=== PATIENT | male | born 1980 | race Caucasian/White ===

== ENCOUNTER 2023-08-28 11:36 | Outpatient (OUT) | payer MEDICARE, SELFPAY ==
[2023-08-28 12:09] LABS: Basophils Percent Auto 0.4 % (0.2-2.0); Eosinophils Absolute Auto 0.1 10^3/uL (0.0-0.7); Eosinophils Percent Auto 1.5 % (0.9-7.0); Hematocrit 45.3 % (42.0-54.0); Hemoglobin 15.2 g/dL (14.0-18.0); Immature Granulocytes Abs Auto 0.01 10^3/uL (0.00-0.03); Immature Granulocytes Pct Auto 0.2 % (0.0-0.5); Lymphocytes Absolute Auto 1.7 10^3/uL (1.2-3.8); Lymphocytes Percent Auto 31.1 % (20.5-60.0); Mean Corpuscular HGB Conc 33.6 g/dL (29.9-35.2); Mean Corpuscular Hemoglobin 31.2 pg (25.9-34.0); Mean Platelet Volume 10.4 fL (9.5-13.5); Monocytes Absolute Auto 0.5 10^3/uL (0.3-0.8); Monocytes Percent Auto 9.1 % (1.7-12.0); Neutrophils Absolute Auto 3.2 10^3/uL (1.4-6.5); Neutrophils Percent Auto 57.7 % (43.0-75.0); Platelet Count 252 10^3/uL (150-450); Red Blood Count 4.87 10^6/uL (4.70-6.10); Red Cell Distribution Width 12.3 % (11.0-15.0); White Blood Count 5.5 10^3/uL (4.0-11.0)
[2023-08-28 12:10] LABS: Ammonia 14 umol/L (11-32)
[2023-08-28 13:28] LABS: Alanine Aminotransferase 65 U/L (16-63); Albumin Globulin Ratio 0.9; Albumin Level 4.1 g/dL (3.4-5.0); Alkaline Phosphatase 82 U/L (46-116); Anion Gap 15.7; Aspartate Amino Transferase 33 U/L (15-37); Bilirubin Total 0.5 mg/dL (0.2-1.0); Calcium 9.4 mg/dL (8.5-10.1); Carbon Dioxide 28.7 mmol/L (21.0-32.0); Chloride 102 mmol/L (98-107); Estimated GFR (African America >60 (>=60); Estimated GFR (Non-African Ame >60 (>=60); Free T3 2.46 pg/mL (2.18-3.98); Globulin 4.5 g/dL; Glucose 96 mg/dL (74-106); Myoglobin 209 ng/mL (16-96); Potassium 4.4 mmol/L (3.5-5.1); Sodium 142 mmol/L (136-145); Thyroid Stimulating Hormone 2.691 uIU/mL (0.358-3.740); Total Protein 8.6 g/dL (6.4-8.2)
[2023-08-28 13:48] LABS: Creatine Kinase 534 U/L (39-308)
== END 2023-08-28 11:37 | disposition home or self-care (01) ==
LOC: LAB 11:40
PROVIDERS: PCP Family Medicine; Visit Provider Family Medicine
DX: R41.3 Other amnesia (principal); R10.9 Unspecified abdominal pain; D64.9 Anemia, unspecified; E55.9 Vitamin D deficiency, unspecified
CPT/HCPCS: 36415; 80053; 82140; 82306; 82550; 83540; 83874; 84436; 84443; 84481; 85025

== ENCOUNTER 2024-08-31 20:08 | Emergency (ER) | payer MEDICARE, MEDICAID, SELFPAY ==
[2024-08-31 20:09] VITALS: BP 170/120; PULSE 87; TEMP 36.6; O2SAT 100; BMI 35.9
--- NOTE | 2024-08-31 20:17 | ED.EXTPRO1 ---
HPI - Extremity Problem General Chief complaint: Extremity Problem, Nontraumatic Stated complaint: Lower Pain Time Seen by Provider: 08/31/24 20:08 Source: patient Mode of arrival: ambulance Limitations: no limitations History of Present Illness HPI Narrative: cc = left lower extremity pain and swelling Patient with muscular dystrophy was brought in by squad after he had sudden, severe pain in the left lower leg along with tightness and squeezing sensation . 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 the left lower leg, calf is much more swollen than the right and he says this is atypical for him By the time he was brought to our emergency department, the patient stated that his pain had gone away . Blood pressure is markedly elevated on arrival No recent fall or injury to the left lower extremity. He is not bedbound but he does spend a significant amount of his time seated or laying in bed. No prior history of DVT or PE. No chest pain, palpitations, shortness of breath Related Data Home Medications ?Medication ?Instructions ?Recorded ?Confirmed bupropion HCl 150 mg 24 hr tablet, mg PO 08/31/24 extended release gabapentin 600 mg tablet mg 08/31/24 lisinopril 20 mg tablet mg 08/31/24 tramadol 50 mg tablet mg 08/31/24 Previous Rx's ?Medication ?Instructions ?Recorded apixaban 5 mg (74 tabs) tablets in 5 mg PO BID #74 ea 08/31/24 a dose pack (Eliquis DVT-PE Treat 30D Start) Allergies Allergy/AdvReac Type Severity Reaction Status Date / Time Penicillins Allergy Unknown Verified 08/31/24 20:12 PFSH PFSH Social History Little interest or pleasure in doing things: not at all Feeling down, depressed, or hopeless: not at all Exam Narrative Exam Narrative: Nurses notes and vital signs reviewed and patient is not hypoxic. afebrile General: Well-appearing and in no apparent distress. Skin: Warm, dry, no pallor noted. No rash. Eye: Pupils are equal, round and EOMI. No scleral icterus. Cardiovascular: Regular Rate and Rhythm without murmur, gallop or rub. Respiratory: No accessory muscle use or respiratory distress. Lungs are clear to auscultation, no wheezing, rales or rhonchi Musculoskeletal: normal ROM, no calf or popliteal tenderness, but the left calf is very firm on palpation, whereas the right is very supple. left lower leg swelling when compared to the right. GI: Abdomen is soft, non-distended. Normal bowel sounds. No tenderness to palpation. No rebound, guarding, or rigidity noted. Neurological: A&O x4. No cranial nerve dysfunction observed. No truncal ataxia. Moves all extremities. Sensation intact. Psychiatric: Cooperative and interactive. Normal mood and affect. Constitutional Vital Signs, click to edit/add: Last Vital Signs Temp 97.9 F 08/31/24 20:09 Pulse 87 08/31/24 20:09 Resp 16 08/31/24 20:09 BP 146/94 H 08/31/24 20:57 Pulse Ox 100 08/31/24 20:09 O2 Del Method Room Air 08/31/24 20:09 Course Vital Signs Vital signs: Vital Signs Temperature 97.9 F 08/31/24 20:09 Pulse Rate 87 08/31/24 20:09 Respiratory Rate 16 08/31/24 20:09 Blood Pressure 170/120 H 08/31/24 20:09 Pulse Oximetry 100 08/31/24 20:09 Oxygen Delivery Method Room Air 08/31/24 20:09 Temperature 97.9 F 08/31/24 20:09 Pulse Rate 87 08/31/24 20:09 Respiratory Rate 16 08/31/24 20:09 Blood Pressure 146/94 H 08/31/24 20:57 Pulse Oximetry 100 08/31/24 20:09 Oxygen Delivery Method Room Air 08/31/24 20:09 MDM - Extremity (Nontraumatic) MDM Narrative Medical decision making narrative: The patient does not have classic findings associated with DVT, I am concerned about the amount of swelling in the left lower leg when compared to the right, the firmness of the leg and the fact that he had pain earlier. 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 interactive video technician reported the patient had a deep venous thrombosis of the left lower extremity. I spoke with the patient about his diagnosis and we discussed several items including the need for anticoagulation -I printed off information for him on how to apply for a savings card that allows his Eliquis to be as low as $10 per month. We also discussed the importance of keeping the leg elevated, using support hose to limit edema, other considerations while on anticoagulation. He gave me permission to talk to his about his condition and recommendations for treatment as well. He has an appointment with Dr. Weaver tomorrow, already scheduled, for routine blood testing and I encouraged him to keep that appointment. We discussed reasons to return to the ED including shortness of breath, chest pain, passing out episodes or any other worrisome condition/symptoms. Discharge Plan Discharge Chief Complaint: Extremity Problem, Nontraumatic Clinical Impression: Deep vein thrombosis of lower extremity Patient Disposition: Home, Self-Care Time of Disposition Decision: 22:40 Prescriptions / Home Meds: New Rambo DVT-PE Treat 30D Start 5 mg (74 tabs) tablets,dose pack 5 mg PO BID Qty: 74 0RF No Action lisinopril 20 mg tablet tramadol 50 mg tablet bupropion HCl 150 mg tablet extended release 24 hr PO gabapentin 600 mg tablet Print Language: German Instructions: Deep Vein Thrombosis (ED), Blood Thinners (ED) Referrals: Shahram Weaver MD [Primary Care Provider] - 1 week
--- OUTSIDE RECORDS SUMMARY | 2024-08-31 20:19 | XMS_ITS | CCD ---
Author Organization [facility] Care Team Providers Care Extract Operator Name Role Phone EARNEST, DR CALIX Consulting Unavailable HOY, DR CALIX Primary Care Unavailable HOY, DR CALIX Admitting Unavailable HOY, DR CALIX Attending Unavailable HOY, DR CALIX Consulting Unavailable HOY, DR CALIX Admitting Unavailable HOY, DR CALIX Attending Unavailable HOY, DR CALIX Primary Care Unavailable HOY, DR CALIX Admitting Unavailable HOY, DR CAILX Attending Unavailable HOY, DR CALIX Consulting Unavailable HOY, DR CALIX Primary Care Unavailable PAY, DR LOZADA Attending Unavailable PAY, DR LOZADA Admitting Unavailable WEST, DR ZARA Esparza Consulting Unavailable PAY, DR LOZADA Consulting Unavailable HOY, DR CALIX Primary Care Unavailable HOY, DR CALIX Admitting Unavailable HOY, DR CALIX Attending Unavailable HOY, DR CALIX Primary Care Unavailable HOY, DR CALIX Admitting Unavailable HOY, DR CALIX Attending Unavailable HOY, DR CALIX Consulting Unavailable Saey Fifi ESCOBAR Primary Care Provider [phone] FIFI WEAVER Referring Unavailable HOY, FIFI M Primary Care Unavailable TRUMAN STRAUSS Attending Unavailable HOY, FIFI M Referring Unavailable HOY, FIFI M Primary Care Unavailable TRUMAN STRAUSS Referring Unavailable BRET LAWRENCE Attending Unavailable HOY, FIFI M Primary Care Unavailable ISFORTTRUMAN C Attending Unavailable HOY, FIFI M Referring Unavailable HOY, FIFI M Primary Care Unavailable Allergies Allergy Classification Reported Allergen(s) Allergy Type Date of Onset Reaction(s) Facility (2 sources) NSAIDs; Translations: [NSAIDS (NON-STEROIDAL ANTI-INFLAMMATOR Y DRUG)] Drug allergy (disorder) 4 [facility] Repository (2 sources) Penicillins; Translations: [PENICILLINS] Drug allergy (disorder) 4 [facility] Repository (2 sources) Penicillin G; Translations: [PENICILLIN G] Drug Allergy 5 Rash [facility] (1 source) natural latex rubber; Translations: [LATEX, NATURAL RUBBER] Propensity to adverse reactions to drug (disorder) 7 [facility] Repository Medications Current Medications Medication Drug Class(es) Dates Sig (Normalized) Sig (Original) acetaminophen 325 mg oral tablet (1 source) take 2 tablets by mouth every four hours acetaminophen 325 MG tablet Take 2 tablets by mouth every 4 hours. Active 24 hr buPROPion hydrochloride 300 mg extended release oral tablet (1 source) Aminoketone Start: 10-29-2023 take 1 tablet by mouth once daily in the morning buPROPion 300 MG tablet XL Take 1 tablet by mouth daily every morning. 10/29/2023 Active gabapentin 600 mg oral tablet (1 source) Anti-epileptic Agent Start: 03-27-2017 GABAPENTIN 600 MG Tab TAKE 1 AND 1/2 TABLETS BY MOUTH THREE TIMES DAILY 135 tablet 11 03/27/2017 Active ibuprofen 800 mg oral tablet (1 source) Nonsteroidal Anti-inflammatory Drug take 1 tablet by mouth every six hours as needed ibuprofen 800 MG tablet Take 1 tablet by mouth Every 6 hours as needed for Other. Active lisinopril 10 mg oral tablet (1 source) Angiotensin Converting Enzyme Inhibitor take 1 tablet by mouth once daily Lisinopril 10 MG tablet Take 1 tablet by mouth daily. Active sildenafil 100 mg oral tablet (1 source) Phosphodiesterase 5 Inhibitor take 0.5 tablet by mouth once daily as needed sildenafil citrate 100 MG tablet Take 0.5 tablets by mouth daily as needed. Active traMADol hydrochloride 50 mg oral tablet (1 source) Opioid Agonist traMADol 50 MG T ab Take 1 tablet by mouth as needed. Active Completed/Discontinued Medications Medication Drug Class(es) Dates Sig (Normalized) Sig (Original) aspirin 325 mg oral tablet (1 source) Platelet Aggregation Inhibitor, Nonsteroidal Anti-inflammatory Drug Start: 12-31-2016 End: 11-17-2023 aspirin 325 MG Tab take 2 tablets by mouth daily.. 1 tablet 12/31/2016 11/17/2023 Discontinued (Therapy completed) Problems Active Problems Problem Classification Problem Date Documented Da te Episodic/Chronic Anxiety disorders (1 source) Anxiety disorder; Translations: [Anxiety disorder, unspecified] Onset: 06-26-2015 06-26-2015 Chronic Immunizations and screening for infectious disease (1 source) Encounter for immunization; Translations: [ENCOUNTER FOR IMMUNIZATION] Onset: 11-14-2021 Episodic Malaise and fatigue (1 source) Fatigue; Translations: [Chronic fatigue, unspecified] Onset: 01-15-2017 01-15-2017 Chronic Other circulatory disease (1 source) Other specified symptoms and signs involving the circulatory and respiratory systems; Translations: [OTH SPEC SX SIGNS INVLV CIRC RS] Onset: 11-15-2021 Episodic Other connective tissue disease (2 sources) Muscle weakness; Translations: [Muscle weakness (generalized)] Onset: 01-15-2017 11-23-2023 Episodic Other gastrointestinal disorders (1 source) History of bypass of stomach; Translations: [Bariatric surgery status] 11-23-2023 Episodic Other nervous system disorders (3 sources) Muscular dystrophy, unspecified; Translations: [MUSCULAR DYSTROPHY UNSPECIFIED] Onset: 04-16-2021 Chronic Other nervous system disorders (1 source) Muscular dystrophy; Translations: [Muscular dystrophy, unspecified] 11-17-2023 Chronic Other nervous system disorders (2 sources) 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; 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] Onset: 06-26-2015 11-17-2023 Chronic Other nutritional; endocrine; and metabolic disorders (1 source) Body mass index 40+ - severely obese; Translations: [Morbid (severe) obesity due to excess calories] Onset: 01-15-2017 01-15-2017 Chronic Pneumonia (except that caused by tuberculosis or sexually transmitted disease) (1 source) Pneumonia (except that caused by tuberculosis or sexually transmitted disease); Translations: [PNEUMONIA D/T CORONAVIRUS DIS 2019] Onset: 04-16-2021 Unclassified (2 sources) CONTACT W/AND (SUSP) EXPOS COVID-19; Translations: [CONTACT W/AND (SUSP) EXPOS COVID-19] Onset: 11-15-2021 Unclassified (1 source) COUGH, UNSPECIFIED; Translations: [COUGH, UNSPECIFIED] Onset: 11-15-2021 Unclassified (1 source) Limb girdle muscular dystrophy, unspecified; 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, unspecified] Onset: 01-15-2017 Viral infection (4 sources) COVID-19; Translations: [COVID-19] Onset: 11-13-2021 Past or Other Problems Problem Classification Problem Date Documented Date Episodic/Chronic Fluid and electrolyte disorders (1 source) Dehydration; Translations: [DEHYDRATION] Onset: 04-16-2021 Episodic Malaise and fatigue (1 source) Weakness; Translations: [WEAKNESS] Onset: 04-16-2021 Episodic Other aftercare (1 source) Other termite treater (current) drug therapy; Translations: [OTH PENITENTIARY CURRENT DRUG THERAPY] Onset: 04-16-2021 Episodic Other lower respiratory disease (1 source) Shortness of breath; Translations: [SHORTNESS OF BREATH] Onset: 04-16-2021 Episodic Other lower respiratory disease (1 source) Dyspnea; Translations: [Shortness of breath] Onset: 02-20-2015 02-20-2015 Episodic Other nervous system disorders (1 source) Poor balance; Translations: [Other abnormalities of gait and mobility] Onset: 01-15-2017 01-15-2017 Episodic Other upper respiratory infections (1 source) Acute sinusitis, unspecified; Translations: [ACUTE SINUSITIS UNSPECIFIED] Onset: 04-14-2021 Episodic Spondylosis; intervertebral disc disorders; other back problems (1 source) Chronic low back pain; Translations: [Chronic midline low back pain without sciatica] Onset: 01-15-2017 01-15-2017 Episodic Unclassified (1 source) CONTACT W/AND (SUSP) EXPOS COVID-19; Translations: [CONTACT W/AND (SUSP) EXPOS COVID-19] Onset: 11-12-2021 Unclassified (1 source) Onset: 11-17-2023 11-17-2023 Unclassified (1 source) Limb girdle muscular dystrophy, unspecified; 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 This test has not been cleared or approved by the U.S. Food and Drug Administration. Test Performed by: [facility] [address] [place] [address] Sports Physiotherapist: Prince Tyler M.D. Ph.D.; CLIA# [id number] [facility] METHYLMALONIC ACIDon 024 Methylmalonate [Moles/Vol] 0.10 nmol/mL [facility] 0.[facility] nmol/mL [facility] Comment on above: ADDITIONAL INFORMATION This test was developed and its performance characteristics determined by [facility] in a manner consistent with CLIA requirements. This test has not been cleared or approved by the U.S. Food and Drug Administration. Test Performed by: [facility] [place] [address] Sports Physiotherapist: Prince Tyler M.D. Ph.D.; CLIA# [id number] [facility] CYSTATIN C AND CREATININE WI ESTIMATED GFRon 11-17-2023 Creatinine [Mass/Vol] 0.30 mg/dL Low 0.70 - 1.30 mg/dL [facility] Cystatin C 1.07 mg/L High 0.51 - 1.05 mg/L [facility] EGFR BY CYS C AND CREATININE, MALE 106 - PINF [facility] Comment on above: Reported eGFR is bas ed on the CKD-EPI 2020 equation using cystatin C, creatinine, age, and sex. Creatinine [Mass/Vol] 0.30 mg/dL Low 0.70-1.30 [facility] Comment on above: Performed By: #### L ABCYCR, MGO #### [facility] (DEFAULT) [address] [place] [address] Cystatin C 1.07 mg/L High 0.51-1.05 [facility] Comment on above: Performed By: #### L ABCYCR, MGO #### [facility] (DEFAULT) [address] [place] [address] EGFR BY CYS C AND CREATININE, MALE 106 mL/min/1.73m2 Normal >=60 [facility] Comment on above: Result Comment: Repo rted eGFR is based on the CKD-EPI 2020 equation using cystatin C, creatinine, age, and sex. Performed By: #### L ZOEY MGO #### [facility] (DEFAULT) [address] [address] MAGNESIUMon 11-17-2023 Magnesium [Mass/Vol] 1.5 mg/dL Low 1.6 - 2.6 mg/dL [facility] Magnesium [Mass/Vol] 1.5 mg/dL Low 1.6-2.6 [facility] Comment on above: Performed By: #### L ALFREDO GREER #### [facility] (DEFAULT) [address] [address] METHYLMALONIC ACIDon 024 METHYLMALONIC ACID 0.10 nmol/mL Normal <=0.40 [facility] Comment on above: Result Comment: ADDITIONAL INFORMATION This test was developed and its performance characteristics determined by [facility] in a manner consistent with CLIA requirements. This test has not been cleared or approved by the U.S. Food and Drug Administration. Test Performed by: [facility] [place] [address] Sports Physiotherapist: Prince Tyler M.D. Ph.D.; CLIA# [id number] Performed By: #### Y MMA #### [facility] (DEFAULT) [address] [address] No Panel Informationon 11-16 Interpretation and review of laboratory results Abnormal [facility] VITAMIN B1on 11-17-2023 THIAMIN, RBC 132 nmol/L Normal 70-180 [facility] Comment on above: Result Comment: ADDITIONAL INFORMATION This test was developed and its performance characteristics determined by [facility] in a manner consistent with CLIA requirements. This test has not been cleared or approved by the U.S. Food and Drug Administration. Test Performed by: [facility] [address] [place] [address] Sports Physiotherapist: Prince Tyler M.D. Ph.D.; CLIA# [id number] Performed By: #### Y VITB1 #### [facility] (DEFAULT) [address] [place] [address] VITAMIN B12on 11-17-2023 Cobalamin (Vitamin B12) [Mass/Vol] 494 pg/mL 211 - 911 pg/mL [facility] Comment on above: Testing of Methylmal onic Acid and Intrinsic Factor Blocking Antibody are recommended if clinical suspicion for pernicious anemia due to B12 deficiency is high for patients with intermediate B12 levels (211 to 400 pg/mL) to rule out spurious heterophile antibodies. Interpretation and review of laboratory results Normal [facility] Cobalamin (Vitamin B12) [Mass/Vol] 494 pg/mL Normal 211-911 [facility] Comment on above: Result Comment: Test ing of Methylmalonic Acid and Intrinsic Factor Blocking Antibody are recommended if clinical suspicion for pernicious anemia due to B12 deficiency is high for patients with intermediate B12 levels (211 to 400 pg/mL) to rule out spurious heterophile antibodies. Performed By: #### B 12B #### [facility] (DEFAULT) [address] [place] [id number] Covid-19 PCR (CVDTBH)on SARS-CoV-2 (COVID-19) RNA RENZO+probe Ql (Unsp spec) Detected Critically abnormal NOT DETECTED [facility] Comment on above: Result Comment: This test is not yet approved or cleared by the [place] FDA. When there are no FDA-approved or cleared tests available, and other criteria are met, FDA can make tests available under an emergency access mechanism called an Emergency Use Authorization (EUA). The EUA for this test is supported by the [employer] Tender of Health and Human Service's (HHS's) declaration that circumstances exist to justify the emergency use of in vitro diagnostics for the detection and/or diagnosis of the virus that causes COVID-19. This EUA will remain in effect (meaning this test can be used) for the duration of the COVID-19 declaration justifying emergency of IVDs, unless it is terminated or revoked by FDA (after which the test may no longer be used). Performed By: #### C VDTBH #### [facility] [address] [place] [address] Dr. Francesca Franco BNPon 04-14-2021 Natriuretic peptide B (Bld) [Mass/Vol] 97.0 pg/mL Normal <=450.0 [facility] Comment on above: Performed By: #### L IPA, CMADM, CMP, BNP #### [facility] [address] [place] [address] Dr. Francesca Franco CARDIAC ULISSES ADMITon 021 CK [Catalytic activity/Vol] 1103 U/L Critically high 55-170 [facility] Comment on above: Result Comment: TEST REPEATED CRITICAL VALUE VERIFIED Performed By: #### L IPA, CMADM, CMP, BNP #### [facility] [address] [place] [address] Dr. Franecsca Franco CK.MB [Mass/Vol] 4.36 ng/mL Critically high <=2.37 [facility] Comment on above: Result Comment: TEST REPEATED CRITICAL VALUE VERIFIED Performed By: #### L IPA, CMADM, CMP, BNP #### [facility] [address] [place] [address] Dr. Francesca Franco HSTROP 10.7 pg/mL Normal 4.0-42.2 [facility] Comment on above: Result Comment: CUT- OFF POINTS HAVE BEEN ESTABLISHED BASED ON THE FOURTH UNIVERSAL DEFINITIONS OF MYOCARDIAL INFARCTION. THE UPPER REFERENCE LIMIT (URL) OF TROPONIN, DEFINED THE 99TH PERCENTILE OF cTnI DISTRIBUTION IN A REFERENCE POPULATION, HAS BEEN CONFIRMED THE DECISION THRESHOLD FOR CT DIAGNOSIS. Performed By: #### L IPA, CMADM, CMP, BNP #### [facility] [address] [place] [address] Dr. Francesca Franco MELA 393.0 ng/mL Critically high <=121.0 [facility] Comment on above: Result Comment: TEST REPEATED CRITICAL VALUE VERIFIED Performed By: #### L IPA, CMADM, CMP, BNP #### [facility] [address] [place] [address] Dr. Francesca Franco CBC W MANUAL DIFFon 04-14-20 21 ATYPICAL LYMPH # 0.16 103/ul Normal [facility] Comment on above: Performed By: #### C BCMAN #### [facility] [address] [place] [address] Dr. Francesca Franco ATYPICAL LYMPH % 4 % Normal [facility] Comment on above: Performed By: #### C BCMAN #### [facility] [address] [place] [address] Dr. Francesca Franco BAND # 0.0 103/ul Normal 0.0-0.3 [facility] Comment on above: Performed By: #### C BCSANDRA #### [facility] [address] [place] [address] Dr. Francesca Franco BAND % 1 % Normal 0-5 [facility] Comment on above: Performed By: #### C BCMAN #### [facility] [address] [place] [address] Dr. Francesca Franco BASOM # 0.00 103/ul Normal 0.00-0.10 [facility] Comment on above: Performed By: #### C BCSANDRA #### [facility] [address] [place] [address] Dr. Francesca Franco BASOM % 0.0 % Critically low 0.2-2.0 [facility] Comment on above: Performed By: #### C BCSANDRA #### [facility] [address] [place] [address] Dr. Francesca Franco BLAST # Normal [facility] Comment on above: Performed By: #### C BCMAN #### [facility] [address] [place] [address] Dr. Francesca Franco BLAST % Normal [facility] Comment on above: Performed By: #### C BCMAN #### [facility] [address] [place] [address] Dr. Francesca Franco CORRECTED WBC Normal 4.0-11.0 [facility] Comment on above: Performed By: #### C SOLANGE #### [facility] [address] [place] [address] Dr. Francesca Franco EOS # 0.00 103/ul Normal 0.00-0.70 [facility] Comment on above: Performed By: #### C SOLANGE #### [facility] [address] [place] [address] Dr. Francesca Franco EOS% 0.0 % Critically low 0.9-7.0 [facility] Comment on above: Performed By: #### C SOLANGE #### [facility] [address] [place] [address] Dr. Francesca Franco HCT 43.1 % Normal 42.0-54.0 [facility] Comment on above: Performed By: #### C SOLANGE #### [facility] [address] [place] [address] Dr. Francesca Franco HGB 14.6 g/dl Normal 14.0-18.0 [facility] Comment on above: Performed By: #### C SOLANGE #### [facility] [address] [place] [address] Dr. Francesca Franco LYMPHM # 0.55 103/ul Critically low 1.20-3.[address] [facility] Comment on above: Performed By: #### C SOLANGE #### [facility] [address] [place] [address] Dr. Francesca Franco LYMPHM% 14.0 % Critically low 20.5-60.0 [facility] Comment on above: Performed By: #### C SOLANGE #### [facility] [address] [place] [address] Dr. Francesca Franco MCH 31.3 pg Normal 25.9-34.0 [facility] Comment on above: Performed By: #### C SOLANGE #### [facility] [address] [place] [address] Dr. Francesca Franco MCHC 33.9 g/dl Normal 29.9-35.2 [facility] Comment on above: Performed By: #### C SOLANGE #### [facility] [address] [address] [address] Francesca Franco MCV 92.3 fL Normal 80.0-94.0 [facility] Comment on above: Performed By: #### C SOLANGE #### [facility] [address] [place] [address] Dr. Francesca Franco METAMYELOCYTE # Normal [facility] Comment on above: Performed By: #### C SOLANGE #### [facility] [address] [place] [address] Dr. Francesca Franco METAMYELOCYTE % Normal [facility] Comment on above: Performed By: #### C SOLANGE #### [facility] [address] [place] [address] Dr. Francesca Franco MONOM# 0.47 103/ul Normal 0.30-0.80 [facility] Comment on above: Performed By: #### C SOLANGE #### [facility] [address] [place] [address] Dr. Francesca Franco MONOM% 12.0 % Normal 1.7-12.0 [facility] Comment on above: Performed By: #### C SOLANGE #### [facility] [address] [place] [address] Dr. Francesca Franco MPV 10.3 fL Normal 9.5-13.5 [facility] Comment on above: Performed By: #### C SOLANGE #### [facility] [address] [place] [address] Dr. Francesca Franco MYELOCYTE # Normal [facility] Comment on above: Performed By: #### C SOLANGE #### [facility] [address] [place] [address] Dr. Francesca Franco MYELOCYTE % Normal [facility] Comment on above: Performed By: #### C SOLANGE #### [facility] [address] [place] [address] Dr. Francesca Franco NRBC Normal [facility] Comment on above: Performed By: #### C SOLANGE #### [facility] [id number] Francesca Franco PLT 167 103/ul Normal 150-450 [facility] Comment on above: Performed By: #### C SOLANGE #### [facility] [id number] Francesca Franco RBC 4.67 106/ul Critically low 4.70-6.[address] [facility] Comment on above: Performed By: #### C SOLANGE #### [facility] [address] [address] [address] Francesca Franco RDW 12.9 % Normal 11.0-15.0 [facility] Comment on above: Performed By: #### C SOLANGE #### [facility] [address] [address] [address] Francesca Franco SEG # 2.69 103/ul Normal 1.40-6.50 [facility] Comment on above: Performed By: #### C SOLANGE #### [facility] [address] [address] [address] Francesca Franco SEG % 69.0 % Normal 43.0-75.0 [facility] Comment on above: Performed By: #### C SOLANGE #### [facility] [address] [address] [address] Francesca Franco WBC 3.9 103/ul Critically low 4.0-11.0 [facility] Comment on above: Performed By: #### Lolita NARVAEZ #### [facility] [address] [place] [address] Dr. Francesca Franco LIPASEon 04-14-2021 Lipase [Catalytic activity/Vol] 110.0 U/L Normal 23.0-300.0 [facility] Comment on above: Performed By: #### L IPA, CMADM, CMP, BNP #### [facility] [address] [address] [address] Francesca Franco PROF 14(COMP METB)on 021 Albumin [Mass/Vol] 3.2 g/dL Critically low 3.5-5.0 [facility] Comment on above: Performed By: #### L IPA, CMADM, CMP, BNP #### [facility] [address] [address] [address] Francesca Franco Albumin/Globulin [Mass ratio] 0.8 {ratio} Normal [facility] Comment on above: Performed By: #### L IPA, CMADM, CMP, BNP #### [facility] [address] [address] [address] Francesca Franco ALP [Catalytic activity/Vol] 62 U/L Normal 38-126 [facility] Comment on above: Performed By: #### L IPA, CMADM, CMP, BNP #### [facility] [address] [place] [address] Dr. Francesca Franco ALT [Catalytic activity/Vol] 79 U/L Critically high 21-72 [facility] [facility] Comment on above: Performed By: #### L IPA, CMADM, CMP, BNP #### [facility] [address] [place] [address] Dr. Francesca Franco Anion gap [Moles/Vol] 12.5 mmol/L Normal [facility] Comment on above: Performed By: #### L IPA, CMADM, CMP, BNP #### [facility] [address] [place] [address] Dr. Francesca Franco AST [Catalytic activity/Vol] 69 U/L Critically high 17-59 [facility] Comment on above: Performed By: #### L IPA, CMADM, CMP, BNP #### [facility] [address] [place] [address] Dr. Francesca Franco Bilirubin [Mass/Vol] 0.3 mg/dL Normal 0.2-1.3 [facility] Comment on above: Performed By: #### L IPA, CMADM, CMP, BNP #### [facility] [address] [place] [address] Dr. Francesca Franco Calcium [Mass/Vol] 8.5 mg/dL Normal 8.4-10.2 [facility] Comment on above: Performed By: #### L IPA, CMADM, CMP, BNP #### [facility] [address] [place] [address] Dr. Francesca Franco Chloride [Moles/Vol] 102 mmol/L Normal 98-107 [facility] Comment on above: Performed By: #### L IPA, CMADM, CMP, BNP #### [facility] [address] [address] [address] Francesca Franco CO2 [Moles/Vol] 29.7 mmol/L Normal 22.0-30.0 [facility] Comment on above: Performed By: #### L IPA, CMADM, CMP, BNP #### [facility] [address] [address] [address] Francesca Farnco Creatinine [Mass/Vol] 0.38 mg/dL Critically low 0.66-1.25 [facility] Comment on above: Performed By: #### L IPA, CMADM, CMP, BNP #### [facility] [address] [address] [address] Francesca Franco EGFR-AF GUYANESE >60 Normal >=60 [facility] Comment on above: Performed By: #### L IPA, CMADM, CMP, BNP #### [facility] [address] [address] [address] Francesca Franco EGFR-NON AF GUYANESE >60 Normal >=60 [facility] Comment on above: Performed By: #### L IPA, CMADM, CMP, BNP #### [facility] [address] [address] [address] Francesca Franco Globulin (S) [Mass/Vol] 4.1 g/dL Normal [facility] Comment on above: Performed By: #### L IPA, CMADM, CMP, BNP #### [facility] [address] [address] [address] Francesca Franco Glucose [Mass/Vol] 85 mg/dL Normal 74-106 [facility] Comment on above: Performed By: #### L IPA, CMADM, CMP, BNP #### [facility] [address] [address] [address] Francesca Franco Potassium [Moles/Vol] 4.2 mmol/L Normal 3.4-5.0 [facility] Comment on above: Performed By: #### L IPA, CMADM, CMP, BNP #### [facility] [address] [address] [address] Francesca Franco Protein [Mass/Vol] 7.3 g/dL Normal 6.1-8.2 [facility] Comment on above: Performed By: #### L IPA, CMADM, CMP, BNP #### [facility] [address] [place] [address] Dr. Francesca Franco Sodium [Moles/Vol] 140 mmol/L Normal 137-145 [facility] Comment on above: Performed By: #### L IPA, CMADM, CMP, BNP #### [facility] [address] [address] [address] Francesca Franco Urea nitrogen [Mass/Vol] 9.0 mg/dL Normal 9.0-20.0 [facility] Comment on above: Performed By: #### L IPA, CMADM, CMP, BNP #### [facility] [address] [place] [address] Dr. Francesca Franco Urea nitrogen/Creatinine [Mass ratio] 23.7 mg/mg Normal [facility] Comment on above: Performed By: #### L IPA, CMADM, CMP, BNP #### [facility] [address] [place] [address] Dr. Francesca Franco XR CHEST 1 Von 04-14-2021 XR CHEST 1 V EXAMINATION: XR CHEST 1 V HISTORY: SHORTNESS OF BREATH COMPARISON: No relevant comparison available. TECHNIQUE: AP portable erect FINDINGS: LUNGS: Low lung volumes. Mild left mid and bibasilar infiltrates. The upper lung zones are clear. VASCULATURE: No increased pulmonary vasculature. PLEURA: No pneumothorax, effusion, or pleural thickening. CARDIAC: No cardiomegaly or cardiac silhouette abnormality. MEDIASTINUM: No visible mass or adenopathy. BONES: No fracture or visible bone lesion. OTHER: EKG wires IMPRESSION: Multifocal infiltrates, consider pneumonia Electronically authenticated by: ZARA ONEAL Date: 2021-04-14 13:56 Normal [facility] Covid-19 PCR (CVDTB)on SARS-CoV-2 (COVID-19) RNA RENZO+probe Ql (Unsp spec) Detected Critically abnormal NOT DETECTED [facility] Comment on above: Result Comment: This test is not yet approved or cleared by the [place] FDA. When there are no FDA-approved or cleared tests available, and other criteria are met, FDA can make tests available under an emergency access mechanism called an Emergency Use Authorization (EUA). The EUA for this test is supported by the Hooker Machine Tender of Health and Human Service's (HHS's) declaration that circumstances exist to justify the emergency use of in vitro diagnostics for the detection and/or diagnosis of the virus that causes COVID-19. This EUA will remain in effect (meaning this test can be used) for the duration of the COVID-19 declaration justifying emergency of IVDs, unless it is terminated or revoked by FDA (after which the test may no longer be used). Performed By: #### C TB #### [facility] [address] [place] [address] Dr. Francesca Franco Vital Signs Date Time Vital Sign Value Performing Clinician Faci lity 11-17-2023 12:39-0400 Body height 177.2 cm Truman Strauss MD Work Phone: [facility] 11-17-2023 12:39-0400 Body mass index (BMI) [Ratio] 36.65 kg/m2 Truman Strauss MD Work Phone: [facility] 11-17-2023 12:39-0400 Body temperature 98.49 [degF] Truman Strauss MD Work Phone: [facility] 11-17-2023 12:39-0400 Body weight 115.03 kg Truman Strauss MD Work Phone: [facility] 11-17-2023 12:39-0400 Diastolic blood pressure 79 mm[Hg] Truman Strauss MD Work Phone: [facility] 11-17-2023 12:39-0400 Heart rate 86 /min Truman Strauss MD Work Phone: [facility] 11-17-2023 12:39-0400 Systolic blood pressure 120 mm[Hg] Truman Strauss MD Work Phone: [facility] Encounters Encounter Date Encounter Type Care Provider Facility Start: 12-08-2023 End: 01-05-2024 ambulatory FIFI WEAVER [facility] Start: 11-17-2023 ambulatory TRUMAN [place] ty:[facility] Start: 11-17-2023 End: 11-17-2023 Office outpatient new 60 minutes Truman Strauss MD Work Phone: [facility] Comment on above: Limb-girdle muscular dystrophy (Primary Dx); Muscular dystrophy; Muscle weakness; History of gastric bypass Start: 11-17-2023 ambulatory TRUMAN [place] ty:[facility] Start: 11-13-2021 End: 11-13-[address] FIFI WEAVER Facility:[facility] Start: 11-12-2021 End: 11-12-[address] FIFI WEAVER Facility:[facility] Start: 05-16-[address] FIFI WEAVER Facility :[facility] Start: 04-14-2021 End: 04-14-[address] FIFI WEAVER Facility:[facility] Start: 04-12-2021 End: 04-12-[address] FIFI WEAVER Facility:[facility] Start: 04-11-2021 End: 04-11-[address] FIFI WEAVER Facility:[facility] Plan of Treatment Date Care Activity Detail Author Start: 04-19-2024 End: 04-19-2024 Patient encounter procedure 04/19/2024 1:15 PM EDT Office Visit [facility] [address] [facility] [address] [place] [address] Truman Strauss MD [address] [place] [address] [facility] Start: 03-07-2024 Influenza vaccination INFLUENZA VACCINE (Season Ended) [facility] Start: 11-17-2023 End: 11-16-2024 Echocardiography ECHOCARDIOGRAM Echocardiography Routine Muscular dystrophy Limb-girdle muscular dystrophy Expected: 11/17/2023, Expires: 11/16/2024 [facility] Comment on above: Expected: 11/17/2023, Expires: Start: 11-17-2023 End: 11-16-2024 Standard ECG ECG ECG Routine Muscular dystrophy Limb-girdle muscular dystrophy Expected: 11/17/2023, Expires: 11/16/2024 [facility] Comment on above: Expected: 11/17/2023, Expires: Start: 03-07-2023 COVID-19 VACCINE ( season) COVID-19 VACCINE () [facility] Start: 11-15-2021 Tetanus vaccination TETANUS [facility] Start: 2019 Lipid panel LIPID SCREENING [facility] Start: 1998 Hepatitis B vaccination HEP B VACCINE (1 of 3 - 19+ 3-dose series) [facility] Start: 1994 HIV screening HIV SCREENING DISCUSSION [facility] Start: 1979 Hepatitis C screening HEPATITIS C VIRUS SCREENING [facility] Payers Date Payer Category Payer Unknown [employer] [id number] 2022-Present [phone] [address] [place] [address] [id number] 2019 Unknown [id number] 2015 Medicaid MEDICAID MEDICAI D [id number] 2015-Present [address] [place] [address] [id number] 2015 Medicaid [id number] 1979 Unknown [id number] 1979 Unknown [id number] 1979 Unknown [id number] 1979 Unknown [id number] 1979 Unknown [id number] 1979 Unknown [id number] 1979 Unknown [id number] 1979 Unknown [id number] 1979 Unknown [id number] 1979 Unknown [id number] 1959 Medicare [id number] 1959 Self-pay [id number] 1959 Unknown [id number] Social History Date Type Detail Facility Start: 11-17-2023 [facility] Start: 06-26-1995 End: 06-26-2005 History of tobacco use Current smoker [facility] Start: 06-26-1995 End: 06-26-2005 History of tobacco use Cigarette Smoker [facility] Start: 11-17-2023 End: 11-18-2023 Cigarettes smoked current (pack per day) - Reported 2 [facility] Start: 11-17-2023 Tobacco use and exposure Former smokeless tobacco user [facility] Start: 11-17-2023 Alcoholic beverage intake Current drinker of alcohol (finding) [facility] Start: 11-18-2023 Tobacco use panel [facility] Start: 11-17-2023 Alcohol Comment 4-6 drinks per day [facility] Start: 1979 Sex assigned at Not on file [facility] Gender identity Identifies as bertrand toro gender (finding) [facility] History of Present illness Narrative 11-17-2023 Truman Strauss MD - 11/17/2023 12:45 PM EDTTerri Bell PT - 11/17/2023 12:45 PM EDT Note Date & Type Note Facility 11-17-2023 History of Present illness Narrative New Neuromuscular Patient Note HISTORY OF PRESENT ILLNESS: Salty Smith is a 43 y.o. 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 He was referred by Fifi Weaver MD. Reports course has been of progressive muscle weakness. Had a CK level in teenage year with elevation. 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 Reports over the past 3 years had had progressive muscle weakness has trouble lifting arms at all. Symptoms worse in the cold. Has trouble walking distances. Using a cane all the time, cruises in the home. Has a powerchair for out of the house. Reports he has fallen twice in the past month, Usually catches his leg or foot and does not have the strength to keep upright. Has fallen with the Does have a powerchair but not fitted for him. Has tired a rollator, due to muscle weakness and upper extremity limitation this is difficult to use. Does not want to use a higher walker. Is able to climb stairs but very difficult for him. Does have swallowing issues, every once in a while, solid or liquids, not choking/coughing, does not go down right. Does have dyspnea. Can be just sitting, when walking. Unclear if orthopnea, as sleeps upright. Does have NAPOLEON (2007) does not use CPAP. Was scheduling for a stress test during COVID but not completed. Primary care ordered a stress test. Drinking more since [id number], 4-6 drinks a day. Previously followed here in the past and had workup as below. Is able to climb stairrs which is about one minute. Does have muscle spasm which can occur anywhere in the arms legs and chest. Does take one gabapentin in the morning and 2 at night which is worse. Tramadol as needed. For muscle pain in the past, was prescribed flexeril but has a waeakness and hangover effect. Can have muscle constriction or spasm and pain. Reports that he has bowel urgency. Can have a sensitive stomach. Has some trouble controlling bowels at times. No problems with bladder function. Can have numbness/tingling in the hands and feet. 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 EMG/NCS: 03/29/16 This study is abnormal. There is electrodiagnostic evidence of an irritable myopathy that affects proximal more than distlal muscles. Muscle ultrasound shows myopathic changes in the proximal muscles of the upper extremity and proximal and distal muscles of the lower extremity. These findings are consistent with his known diagnosis of LGMD. Age of onset: Entire life, as a kid had abnormal gait and runnings. Initial Symptoms: Childhood Family history: No family history of MD, has 3 siblings. CK (2016): 2147, aldolase 14 Muscle weakness Physical therapy: see today Occupational therapy: Bracing/assistive devices: Cane, powerchair Supplements/Therapy: Wheelchair: Yes. Powerchair Falls (# over the past 3 months): Muscle pain Current medications: gabapentin, tramadol Previous medications: Flexeril Cardiovascular Administrative Office Specialist: None - reported previous cardiac workup but not able to review Most recent EKG: Most recent TTE: Most recent Holter: Cardiac Device: None Respiratory Most recent PFT results: 11/2023 Spirometry indicates a mild restrictive thoracic disorder. FVC 3.66/73%, FEV1 3.12/79%, PEF 8.29/84%, SVC 2.81/56%. The MIP was -120, MEP was +120. BiPAP or Ventilator: Non Vaccinations: Spinal Conditions Sleep Sleep study: NAPOLEON but not on treatment Fatigue Current medications: Previous medication: Dysphagia (or other GI sxs) Swallowing Issues: Yes. Mild, occasional choking Most recent swallow study: Hospitality Manager: Supplements: Endocrine DEXA: Cognition MARYJO: Mental health N/A Clinical Trial Participation No. Looked at current clinical trials, would not meet criteria for [place] trial ([place] trial will hold off referral at the current time. Stretching Exercises No. 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 Per chart: one time that he had Gay's on a muscle biopsy but a second reading on that biopsy said it was more consistent with Limb-Girdle Muscular Dystrophy (LGMD) REVIEW OF SYSTEMS: Fever Shortness of breath Sexual difficulties Weight loss/gain Trouble breathing on exertion Tender muscles Double vision Difficult chewing Persistent rashes Dizziness Difficulty swallowing Feeling depressed Ringing in your ears Loss of bladder control Changes to your hair/nails Decreased hearing Loss of bowel control Easy bruising/bleeding Lightheadedness Constipation Sensory changes x Back pain Voice changes Sleep problems positive if marked, remainder of 14 point ROS negative. PAST MEDICAL HISTORY, PAST SURGICAL HISTORY, ALLERGIES, MEDICATIONS, FAMILY HISTORY, SOCIAL HISTORY Past Medical History: has a past medical history of Anxiety, Cardiac angina, Depression, Fatty liver disease, nonalcoholic, HTN (hypertension), Limb-girdle muscular dystrophy, Muscular dystrophy, and NAPOLEON (obstructive sleep apnea). Past Surgical History: has a past surgical history that includes gastric bypass; heart catheterization; insertion ear tube; bx muscle open; and bx liver wedge laparoscopic. Medications: Outpatient Medications Prior to Visit Medication Sig Dispense Refill acetaminophen 325 MG tablet Take 2 tablets by mouth every 4 hours. buPROPion 300 MG tablet XL Take 1 tablet by mouth daily every morning. GABAPENTIN 600 MG Tab TAKE 1 AND 1/2 TABLETS BY MOUTH THREE TIMES DAILY 135 tablet 11 ibuprofen 800 MG tablet Take 1 tablet by mouth Every 6 hours as needed for Other. Lisinopril 10 MG tablet Take 1 tablet by mouth daily. sildenafil citrate 100 MG tablet Take 0.5 tablets by mouth daily as needed. traMADol 50 MG Tab Take 1 tablet by mouth as needed. aspirin 325 MG Tab take 2 tablets by mouth daily.. (Patient not taking: Reported on 11/17/2023) 1 tablet 0 No facility-administered medications prior to visit. Allergies: Allergies Allergen Reactions Penicillin G Rash Social History: reports that he quit smoking about 18 years ago. His smoking use included cigarettes. He started smoking about 28 years ago. He has a 20 pack-year smoking history. He has quit using smokeless tobacco. He reports current alcohol use. He reports that he does not use drugs. Family History: family history includes Depression in an other family member; Diabetes in his mother; GI Disease (age of onset: 60) in his mother; Myocardial Infarction in his paternal grandmother; No known problems in his brother, sister, sister, son, and son; Other - Specify in his father. PHYSICAL EXAM: BP 120/79 (BP Location: Left arm, BP Position: Sitting) Pulse 86 Temp 98.5 F (36.9 C) (Infrared) Ht 1.772 m (5' 9.75 ) Wt 115 kg (253 lb 9.6 oz) BMI 36.65 kg/m Smoking Status Former General: Well-developed, well-nourished, in no acute distress. HEENT: normocephalic, atraumatic, no clear oral lesions or tongue lacerations, mucous membranes are moist CV: RRR with no murmur appreciated. Lungs: CTA bilaterally, breathing comfortably on RA Ext: No edema, no ulcer. Warm, well-perfused. Skin: No significant rashes on visualized skin. MENTAL STATUS Patient is awake, alert, and appropriately oriented. Attentive to examiner, cooperative with exam. Language is fluent. Patient is able to give details of his own history. CRANIAL NERVES II: Pupils are equal, round and reactive to light. III, IV and : extraocular movements are full. There is no nystagmus. V: Facial sensation is intact and symmetric. VII: The face is strong and symmetric. VIII: Hearing is grossly intact. IX and X: Soft palate elevates symmetrically in the midline. No dysarthria XI: Shoulder shrug and sternocleidomastoids are strong. XII: Tongue is midline, normal movement, no atrophy or fasciculations. MOTOR Bulk and tone are normal. Neck flexion and extension are 5/5. SA EE EF WE WF FF FE ThAb Jenny Left 2 3 4- 5 5 5 5 5 5 Right 2 3 4- 5 5 5 5 5 5 HF KE KF DF PF Inv Ev EHL Toe Flex HAb HAd Left 1 4- 4 5 5 4- 1-2 Right 1 4- 4 5 5 4- 1-2 (Examination performed in the sitting position unless indicated) REFLEXES Reflexes Right Left Biceps 1 1 Triceps 1 1 Brachioradialis 1 1 Hoffmans Patella 1 1 Achilles 2 2 Plantar Response Flex Flex Crossed Adductors - - SENSORY Light touch: Intact throughout Temp/Pinprick: Intact throughout Proprioception: Intact throughout Vibration: toe ankle knee finger Left Nl Nl Right Nl Nl COORDINATION AND GAIT Finger to nose is intact without dysmetria or tremors. Deferred gait today with fall risk. ASSESSMENT/PLAN Salty Smith is a 43 y.o. 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 Laboratory and clinical features seem consistent with this. Discussed referral to cardiology, deferred, but will get baseline cardiac testing as dilated cardiomyopathy can be consistent with this condition. Full plan as below Plan: - Labs: B12, B1, MMA, magnesium with muscle cramping and paresthesias - Cystatin C - EKG/TTE --- Pt deferred cardiology referral will do this if workup abnormal - PFTs today - PT to see in clinic and will consider PT referral - Referral to sleep medicine to re-evaluate treatment for NAPOLEON - Referral to clinic for custom powerchair - DEXA at next visit - Discussed decreasing alcohol consumption. - Follow up in 6 months. Thank you for allowing me to participate in the care of this patient. Please feel free to contact me with any questions or concerns. I have spent 79 minutes in pre-visit records review and preparation, face to face time with the patient, post visit chart documentation and discussion. Truman Strauss MD Water Filter Cleaner of Neurology Physical Therapy Consultation Subjective: I had the pleasure of seeing Matthew at the request of Dr. Strauss during [facility] clinic this date. Pt is present with his , Krystle. Pt is concerned about maintaining core strength, transfer training, and home modification. In the past, he went to aquatic therapy and really enjoyed it. It became difficult to continue going because he was not able to dress himself given the foreign environment or transfer on and off regular sized toilets without assistance. He was not able to have an aid or spouse come to the appointments with him to assist. Pt has frequent falls and feels that mostly he loses his balance forward due to inability to control core. Pt is not able to use protective reaction to recover falls. Pt gets out of his power chair via tripod method. Pt's power chair is a used chair that does not appropriately fit the pt. Pt is having difficulties bathing due to current shower set up with tub and requires a roll in shower and a toilet lift. In the community, pt is unable to use their restrooms for a bowel movement due to low toilet. Pt is concerned that his transfers are going to continue to worsen and he is unprepared for the new technique required. Education: Therapist educated patient about the overall exercise parameters/precautions for starting home exercise program. Wheelchair clinic: Discussed the pros and process of [facility] wheelchair clinic. Transfer training: Discussed use of adaptive equipment for transfer training such as sliding boards, lift toilet seat, shower chair, grab bars, and beasy boards. Pt's current difficulties are transferring in the community. To address this, PT recommended OP neuro rehab to trial and error different techniques and devices. This also addresses the concern of progressing weakness, outpatient rehab would create a maintenance program and rapport to return to during difficulties that arise. Bathroom modifications: PT recommended roll in shower for wheelchair accommodation, toilet lift, grab bars, and handheld shower head. Core and shoulder exercises: PT creating home program for the pt to address maintaining core and shoulder strength in a seated/adapted position. Assessment/Plan: Matthew was seen in clinic to discuss transfer training, bathroom set up, and weakness concerns related to LGMD. PT setting up outpatient neuro PT at [facility] in [place]. PT wrote letter of medical necessity for bathroom modifications. PT sending pt core and shoulder exercises. Time spent with patient: 34 minutes Non-billable as this was during [facility] clinic. Terri Bell PT, DPT License #: [id number] documented in this encounter [facility] Instructions 11-17-2023 Patient Instructions Note Date & Type Note Facility 11-17-2023 Instructions Truman Strauss MD - 11/17/2023 12:45 PM EDT - Will refer to the powerchair clinic - Echocardiogram and EKG - Will check some vitamin labs and kidney function - Referral to sleep medicine - Check - Talk to PCP about Vit D supplementation - Decrease alcohol consumption - Follow up in 6 months Thank you for coming to the Neuromuscular Clinic at [facility]. Consider signing up for Boedo so that we can communicate more easily. Otherwise, for any future questions please call [phone]. For results from testing and labs, we will get back to you as soon as possible regarding a significant result. For results that are benign, normal, or non-urgent, you will be reached via Boedo or our medical assistants will call you within a couple of weeks. Please note that many labs take several weeks to result, especially genetic testing. If you have not heard from us regarding labs, imaging or other results for testing you had done within 2 weeks please contact our office. If you are having any tests performed outside [facility], please let the lab performing the tests know to fax any results to your doctor's attention- [phone]. Please allow extra time for us to get back to you about these results because often times they take longer for us to receive them. If you have not heard from us within 2 weeks, please go ahead and call to see if we have received the results. 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 Muscular dystrophy Hereditary progressive muscular dystrophy Muscle weakness Muscle weakness (generalized) History of gastric bypass Bariatric surgery status documented in this encounter [facility] Summary Purpose Family History No Family History Records FoundNo Family History Records FoundNo Family History Records Found Advance Directives No Advanced Directives Records FoundNo Advanced Directives Records FoundNo Advanced Directives Records Found Reason for Referral Specialty Diagnoses / Procedures Referred By Jadon young Referred To Contact Diagnoses Muscular dystrophy Limb-girdle muscular dystrophy Truman Strauss MD [address] [place] [address] Referral ID Status Reason Start Date Expiration Date V isits Requested Visits Authorized [id number] New Request 11/23/2023 12/17/2024 1 1 Scheduling Instructions [facility] [place] (Orthopedic, Sports Rehab) [address], [address], [place] [address] Outpatient Care [place] (Burn, Neurological, Orthopedic, Pelvic Health, Sports Rehab) [address], [address] [address] Outpatient Care [facility] (Orthopedic Rehab) [address], [address], [place] [address] Outpatient Care [place] (Orthopedic, Pelvic Health, Sports) [address], [address], [place] [address] Outpatient Care [place] - Pelvic Health [address], [address], [place] [address] Outpatient Care [place] (Orthopedic, Pelvic Health, Sports Rehab) [address], [address], [place] [address] Outpatient Care [place] (Aquatic, Burn, Neurological, Orthopedic, Pelvic Health Rehab) [address], [facility] [address], [place] [address] Outpatient Care [place] (Burn, Neurological, Orthopedic, Pelvic Health, Sports Rehab) [address], [address], [place] [address] Outpatient Rehabilitation [facility] (Burn, Neurological, Orthopedic Rehab) [address] [place] [address] [facility] (Aquatic, Burn, Neurological, Orthopedic, Pelvic Health Rehab) [address], [place] [address] Outpatient Rehabilitation [place] (Burn, Neurological, Orthopedic Rehab) [address] [place] [address] Sports Medicine Rehabilitation [facility] (Orthopedic, Sports Rehab) [address] [place] [address] Sports Medicine Rehabilitation [facility] (Orthopedic, Sports Rehab) [address] , [place] [address] Sports Medicine Rehabilitation [facility] (Orthopedic, Sports Rehab) [address] , [place] [address] Sports Medicine Rehabilitation [facility] (Aquatic, Orthopedic, Pelvic Health, Sports Rehab) [address], [place] [address] Sports Medicine Rehabilitation [facility] (Orthopedic, Sports Rehab) [address] [place] [address] [facility] (Orthopedic, Sports Rehab) [address] [address], [place] [address] Specialty Diagnoses / Procedures Referred By Contac t Referred To Contact Diagnoses Muscular dystrophy Limb-girdle muscular dystrophy Procedures ECHOCARDIOGRAM SD ECHO HEART XTHORACIC,COMPLETE W DOPPLER IsfTruman clement MD [address] [place] [address] Referral ID Status Reason Start Date Expiration Date V isits Requested Visits Authorized [id number] New Request 11/17/2023 12/11/2024 1 1 Specialty Diagnoses / Procedures Referred By Contac t Referred To Contact Diagnoses Muscular dystrophy Limb-girdle muscular dystrophy Procedures ECG Truman Strauss MD [address] [place] [address] Referral ID Status Reason Start Date Expiration Date V isits Requested Visits Authorized [id number] New Request 11/17/2023 12/11/2024 1 1 Referral ID Status Reason Start Date Expiration Date V isits Requested Visits Authorized [id number] New Request 11/17/2023 12/11/2024 1 1 Specialty Diagnoses / Procedures Referred By Contact Referred To Contact Physical Medicine & Rehabilitation Diagnoses Muscular dystrophy Limb-girdle muscular dystrophy Truman Strauss MD [address] [place] [address] Referral ID Status Reason Start Date Expiration Date V isits Requested Visits Authorized [id number] New Request 11/17/2023 12/11/2024 1 1 Additional Source Comments (unrecognized sect ion and content) No Status Records FoundNo Status Records FoundNo Status Records Found INFORMATION SOURCE (unrecogn ized section and content) DATE CREATED AUTHOR 11/16/2021 [facility] DATE CREATED AUTHOR AUTHOR'S ORGANIZ ATION 01/05/2024 [facility] DATE CREATED AUTHOR AUTHOR'S ORGANIZ ATION 04/09/2024 [facility] Reason for Visit (unrecogniz ed section and content) Reason Comments New Patient Specialty Diagnoses / Procedures Referred By Contac t Referred To Contact Neurology Diagnoses Muscular dystrophy Fifi Weaver MD [address] [place] [address] [place] [address] [facility] [address] [place] [address] Referral ID Status Reason Start Date Expiration Date V isits Requested Visits Authorized [id number] Pending Review 10/06/2023 10/30/2024 1 1 Care Teams (unrecognized sec tion and content) Extract Operator Relationship Specialty Start Date End Date Fifi Weaver MD [address] [place] [address] PCP - General Family Medicine 02/20/15 FOR RECORDS PERTAINING TO PATIENTS WHO ARE OR HAVE BEEN ENROLLED IN A CHEMICAL DEPENDENCY/SUBSTANCEABUSE PROGRAM, SOME INFORMATION MAY BE OMITTED. This clinical summary was aggregated from multiple sources. Caution should be exercised in using it in the provision of clinical care. This summary normalizes information from multiple sources, and as a consequence, information in this document may materially change the coding, format and clinical context of patient data. In addition, data may be omitted in some cases. CLINICAL DECISIONS SHOULD BE BASED ON THE PRIMARY CLINICAL RECORDS. [employer] [facility]. provides no warranty or guarantee of the accuracy or completeness of information in this document.
[2024-08-31 20:57] VITALS: BP 146/94
[2024-08-31] MEDS: ENOXAPARIN SODIUM 120 MG/0.8 ML SYRINGE 115 MG SUBQ (22:52)
== END 2024-08-31 23:52 | disposition home or self-care (01) ==
PROVIDERS: Emergency Provider Emergency Medicine; PCP Family Medicine
DX: I82.492 Acute embolism and thrombosis of other specified deep vein of left lower extremity (principal); M79.605 Pain in left leg; R60.0 Localized edema
CPT/HCPCS: 93971; 96372; 99285; J1650

== ENCOUNTER 2024-12-08 10:04 | Outpatient (OUT) | payer MEDICARE, MEDICAID, SELFPAY ==
--- OUTSIDE RECORDS SUMMARY | 2024-12-08 10:08 | XMS_ITS | Clinical Summary ---
Author Organization [employer] tem Address [id number] [address] 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 Active traMADol (ULTRAM) 50 mg tablet Take 1 tablet (50 mg total) by mouth 2 (two) times a day as needed for pain. 30 Day Supply 60 tablet 05/15/2017 Active acetaminophen (TYLENOL) 500 mg tablet Take 1,000 mg by mouth as needed for pain. Active calcium citrate-vitamin D3 (CITRACAL+D) 250-200 mg-units tabletIndication s:Malnutrition, unspecified type,Low vitamin D level,History of bariatric surgery Take 2 tablets by mouth 3 (three) times a day. 180 tablet 11 06/13/2017 Active lisinopriL (PRINIVIL,ZESTRI L) 10 mg tablet Take 10 mg by mouth daily. Active ibuprofen (ADVIL,MOTRIN) 800 mg tablet Take 800 mg by mouth every 6 (six) hours as needed for pain. 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 Muscular dystrophy 06/26/2015 Family History Medical History Relation Name Comments Anxiety disorder Brother Anxiety disorder Father Anxiety disorder Mother Anxiety disorder Sister 1 Anxiety disorder Sister 2 Relation Name Status Comments Brother Alive Father Mother Alive Sister 1 Alive Sister 2 Social History Tobacco Use Types Packs/Day Years Used Date Smoking Tobacco: Former Smokeless Tobacco: Former Alcohol Use Standard Drinks/Week Comments Yes 0 (1 standard drink = 0.6 oz pur e alcohol) Socially; maybe once a month Childcare Answer Date Recorded Childcare Unknown 12/16/2018 Employment Answer Date Recorded Employment Unknown 12/16/2018 Purpose - Life Answer Date Recorded Purpose and direction in life Unknown Sex and Gender Information Value Date Recorded Sex Assigned at Not on file Legal Sex Male 11:24 AM EDT Gender Identity Not on file Sexual Orientation Not on file Last Filed Vital Signs Vital Sign Reading Time Taken Comments Blood Pressure 142/91 11/09/2020 8:40 PM EDT Pulse 71 11/09/2020 8:40 PM EDT Temperature 36.8 C (98.2 F) 11/09/2020 6:26 PM EDT Respiratory Rate 20 11/09/2020 8:40 PM EDT Oxygen Saturation 98% 11/09/2020 8:40 PM EDT Inhaled Oxygen Concentration - - Weight 124.7 kg (275 lb) 11/09/2020 6:26 PM EDT Height 182.9 cm (6') 11/09/2020 6:26 PM EDT Body Mass Index 37.3 11/09/2020 6:26 PM EDT Plan of Treatment Health Maintenance Due Date Last Done Comments Depression Screening 1991 Tobacco Screening 1991 Adult BMI Screening 1997 DTaP,Tdap and Td Vaccines (2 - Td or Tdap) 11/15/2021 11/16/2011 Influenza Vaccine 03/07/2025 Medical Devices Not on file Insurance [place]ICAID [place] Care Teams Construction Craft Laborer Relationship Specialty Start Date End Date Shahram Weaver MD PCP - General 11/07/16
--- NOTE | 2024-12-08 10:12 | MR_ITS ---
[address] [address] Patient Name: RADHA COX MRN: [id number] date: 1980 Sex: M Assigned Patient Location: MRI Current Patient Location: MRI Accession/Order Number: [id number] Exam Date: 12/08/2024 14:52 Report Date: 12/08/2024 14:57 At the request of: FIFI TINOCO MD Procedure: MR lumbar spine wo con MRI Lumbar Spine withoutcontrast TECHNIQUE: Multiplanar T1 and T2-weighted imaging of lumbar spine obtained without contrast. HISTORY: Lumbar pain with radiculopathy extension into the legs bilaterally. Numbness and tingling. COMPARISON: None The last fully segmented vertebral pair is operationally defined as L5/S1. POST SURGERY CHANGES: None BONE MARROW INFILTRATION: None BONE MARROW EDEMA: None BONY ALIGNMENT: Adequate bony alignment identified. SPINAL CANAL: No significant central canal narrowing. LUMBAR FRACTURE: None muscular atrophy. BONY LESIONS: L2 vertebral body hemangioma KIDNEYS: No hydronephrosis is identified. AORTA: No aortic aneurysm is seen. CONUS MEDULLARIS : The distal spinal cord is in adequate position without abnormality. Additional findings CONJOINED NERVE ROOT: None Lower thoracic level: Unremarkable L1-2 :Patent central canal and neural foramen. L2-3: Patent central canal and neural foramen L3-4: Patent central canal and neural foramen L4-5: Mild disc space narrowing. Diffuse disc bulge. Mild central canal stenosis. Posterior element hypertrophy. Mild to moderate bilateral neural foraminal narrowing L5-S1: Marked disc space narrowing with degenerative endplate changes and spurring. Diffuse disc bulge and bilateral paracentral disc protrusions. Mild central canal stenosis. Posterior element hypertrophy. Moderate neural foraminal narrowing bilaterally. MR/MR lumbar spine wo con IMPRESSION: Lower lumbar discovertebral degenerative changes greatest at the L5-S1 level.. Mild central canal stenosis. Neural foraminal narrowing lower lumbar spine as above. Pre-MRI plain film assessment: None Impression dictated by: Dae Alcazar M.D. 12/08/2024 2:57 PM Dictation Location: [place] [address] Electronically authenticated by: [id number] Y Date: 12/08/2024 14:57
--- NOTE | 2024-12-08 10:22 | XR_ITS ---
The [address] [address] Patient Name: RADHA COX MRN: [id number] date: 1980 Sex: M Assigned Patient Location: MRI Current Patient Location: MRI Accession/Order Number: [id number] Exam Date: 12/08/2024 10:37 Report Date: 12/08/2024 10:39 At the request of: FIFI TINOCO MD Procedure: XR foreign body eye KATHYA FOREIGN BODY ORBITS - 2 views CLINICAL DATA: Foreign body screening prior to MRI. COMPARISON: None Brasher and lateral views of the orbits were obtained. No radiopaque orbital foreign bodies are identified. There is normal development and pneumatization of the paranasal sinuses. There may be some mucosal thickening at the medial left maxillary sinus. No acute bone or soft tissue abnormalities are noted. XR/XR foreign body eye KATHYA IMPRESSION: NO ORBITAL RADIOPAQUE FOREIGN BODIES. Impression dictated by: Suzanne Mancilla M.D. 12/08/2024 10:39 AM Dictation Location: [place] [address] Electronically authenticated by: [id number] Y Date: 12/08/2024 10:39
== END 2024-12-08 10:05 | disposition home or self-care (01) ==
LOC: MRI 10:06
PROVIDERS: PCP Family Medicine; Visit Provider Family Medicine
DX: M47.816 Spondylosis without myelopathy or radiculopathy, lumbar region (principal); M51.369 Other intervertebral disc degeneration, lumbar region without mention of lumbar back pain or lower extremity pain
CPT/HCPCS: 70030; 72148